=== PATIENT | male | born 1975 | race Caucasian/White ===

== ENCOUNTER → 2016-11-15 | Outpatient (CLI) | payer OTHER ==
[~2016-11-15] MED LIST: ATARAX25 MG PO; ATORVASTATIN CA20 M1 PO; CEFTRIAXON2 GM/50 ML IV; EPI EZ PEN1 MG/ML IM; HYDROCHLOROTH12.5 M3 PO; LIPITOR20 MG PO; MELOXICAM7.5 MG PO; NORCO 5-325 TA1 EACH PO; PREDNISONE20 MG PO; SYNTHROID,LEVO75 MCG PO; SYNTHROID0.125 MG PO; SYNTHROID25 MCG PO; VITAMIN B1250 MCG PO; VITAMIN D1000 IU PO; VITAMIN D400 IU PO; XARE15TA PO; XARE20MG PO
== END ==
LOC: MRI 07:35
DX: A69.20 Lyme disease, unspecified (principal)

== ENCOUNTER → 2017-02-14 | Outpatient (CLI) | payer OTHER | END | disposition home or self-care (01) | LOC: US 13:29 | DX: I10 Essential (primary) hypertension (principal) ==

== ENCOUNTER → 2017-05-27 | Outpatient (CLI) | payer OTHER ==
[2017-05-27 13:29] LABS: BUN 14 mg/dl (7-24); CHLORIDE 105 mmol/L (98-107); CREATININE 1.28 mg/dL (0.70-1.30); PHOSPHOROUS 2.5 mg/dL (2.5-4.9); SODIUM 140 mmol/L (136-145)
== END | disposition home or self-care (01) ==
LOC: LAB 12:37
PROVIDERS: Internal Medicine Nephrology
DX: N17.9 Acute kidney failure, unspecified (principal)

== ENCOUNTER → 2017-08-21 | Outpatient (CLI) | payer OTHER | END | disposition home or self-care (01) | LOC: RAD 15:08 | DX: M54.5 Low back pain (principal); V89.2XXD Person injured in unspecified motor-vehicle accident, traffic, subsequent encounter ==

== ENCOUNTER 2017-12-22 07:13 | Emergency (ER) | payer OTHER ==
[~2017-12-22] VITALS: Ht 182.8 cm; Wt 90.7 kg
[2017-12-22] MEDS ORDERED: MEDROL DOSEPAK4 MG PO (07:23)
[2017-12-22] MEDS ORDERED: DIPHENHYDRAMINE50 M3 PO (07:25)
== END 2017-12-22 07:30 | disposition home or self-care (01) ==
LOC: ED 07:13
DX: T63.441A Toxic effect of venom of bees, accidental (unintentional), initial encounter (principal); Y92.89 Other specified places as the place of occurrence of the external cause

== ENCOUNTER → 2020-03-30 | Outpatient (CLI) | payer OTHER ==
[~2020-03-30] MED LIST changes: +DIPHENHYDRAMINE50 M3 PO; +MEDROL DOSEPAK4 MG PO
== END | disposition home or self-care (01) ==
LOC: COVID19 03:13
PROVIDERS: ATTEND Physician Assistant
DX: U07.1 COVID-19 (principal)

== ENCOUNTER → 2020-04-20 | Outpatient (CLI) | payer OTHER | END | disposition home or self-care (01) | LOC: COVID19 08:07 | PROVIDERS: ATTEND Physician Assistant | DX: Z20.828 Contact with and (suspected) exposure to other viral communicable diseases (principal) ==

== ENCOUNTER → 2021-02-09 | Outpatient (CLI) | payer OTHER | END | disposition home or self-care (01) | LOC: CT 09:50 | PROVIDERS: ATTEND Physician Assistant | DX: N20.0 Calculus of kidney (principal); I10 Essential (primary) hypertension; E78.00 Pure hypercholesterolemia, unspecified; E03.9 Hypothyroidism, unspecified; G89.29 Other chronic pain; R10.11 Right upper quadrant pain ==

== ENCOUNTER → 2022-02-07 | Outpatient (CLI) | payer OTHER | END | disposition home or self-care (01) | LOC: RAD 09:55 | PROVIDERS: ATTEND Urology | DX: N20.0 Calculus of kidney (principal) ==

== ENCOUNTER → 2022-02-08 | Day surgery (SDC) | payer OTHER ==
[~2022-02-08] VITALS: Ht 182.8 cm; Wt 88.5 kg
[2022-02-08 07:00] VITALS: BP 155/102
[2022-02-08 08:35] VITALS: BP 156/91
[2022-02-08 08:50] VITALS: BP 161/95
[2022-02-08 09:05] VITALS: BP 179/109
== END | disposition home or self-care (01) ==
LOC: SDC 02-05 08:45
PROVIDERS: ATTEND Surgery
DX: Z12.11 Encounter for screening for malignant neoplasm of colon (principal); K63.5 Polyp of colon; K57.30 Diverticulosis of large intestine without perforation or abscess without bleeding; I10 Essential (primary) hypertension; K21.9 Gastro-esophageal reflux disease without esophagitis; Z79.899 Other long term (current) drug therapy